=== PATIENT | female | born 2000 | race Caucasian/White ===

== ENCOUNTER 2022-11-02 12:27 | Emergency (ER) | payer OTHER ==
[~2022-11-02] VITALS: Ht 152.4 cm; Wt 2.7 kg
[~2022-11-02 12:27] MED LIST: IBUP-1969 PO; LIDO1ADH71 TD; METH-634 PO
[2022-11-02 12:34] VITALS: BP_SYST 146
--- NOTE | 2022-11-02 12:38 | NUR ---
PT BIBA AWAKE AND ALERT AOX4, NO SOB OR DISTRESS. PT HAD A SEIZURE AT HOME THAT LASTED 10 SEC. PT FAMILY STATED SHE HIT HER HEAD. PT STATES PAIN TO HER CALF BILATERLLY. PT HAS HX OF EPILEPSEY AND THIS WAS HER SECOND SEIZURE. FIRST SEIZURE WAS BACK IN 2018.
[2022-11-02] MEDS ORDERED: LORazepam 1 MG TABLET PO ONE (12:45)
--- NOTE | 2022-11-02 12:45 | NUR ---
Patient triaged and placed IN [facility]. VSS and patient appears in no acute distress at this time. Accompanied by 2 EMT, awaiting available bed, and MD notified of need for MSE.
--- NOTE | 2022-11-02 12:46 | NUR ---
DR. FRANK AT [facility] TO ASSESS PT.
--- NOTE | 2022-11-02 12:48 | NUR ---
Patient to ER bed 7 to gown for evaluation. Side rails up. Report given to HAROON LEVIN.
[2022-11-02 13:12] LABS: BASOPHILS # (AUTO) 0.1 K/uL (0.0-0.2); BASOPHILS % (AUTO) 1.2 % (0.0-2.0); EOSINOPHILS # (AUTO) 0.1 K/uL (0.0-0.4); HEMATOCRIT 34.7 % (36-48); HEMOGLOBIN 11.4 g/dL (12.0-16.0); LYMPHOCYTES % (AUTO) 32.4 % (20.5-51.5); MEAN CORPUSCULAR HEMOGLOBIN 29 pg (27-31); MEAN CORPUSCULAR HGB CONC 33 % (32-36); MEAN CORPUSCULAR VOLUME 88 fL (79.0-98.0); MONOCYTES # (AUTO) 0.3 K/uL (0.0-1.0); MONOCYTES % (AUTO) 4.6 % (1.7-9.3); NEUTROPHILS # (AUTO) 3.8 K/uL (1.8-7.7); NEUTROPHILS % (AUTO) 60.8 % (40.0-70.0); PLATELET COUNT (AUTO) 309 K/uL (130-430); RED BLOOD CELL COUNT(AUTO) 3.94 MIL/uL (4.2-6.2); RED CELL DISTRIBUTION WIDTH 14.9 % (9.0-15.0); WHITE BLOOD COUNT (AUTO) 6.3 K/uL (4.8-10.8)
[2022-11-02 13:17] LABS: CALCIUM 8.9 mg/dL (8.4-11.0); CREATININE 0.82 mg/dL (0.55-1.30)
[2022-11-02 13:22] LABS: ALBUMIN 3.9 g/dL (3.4-4.8); TOTAL BILIRUBIN 0.5 mg/dL (0.0-1.0)
[2022-11-02] MEDS ORDERED: LamoTRIgine 25 MG TABLET PO SCH (15:15)
--- NOTE | 2022-11-02 16:00 | NUR ---
Patient given written and verbal discharge instructions and verbalizes understanding. ER MD DR FRANK discussed with patient the results and treatment provided. Patient in stable condition. ID arm band removed. IV catheter removed intact and dressing applied, no active bleeding. Patient educated on pain management and to follow up with PMD. Pain Scale 0/10. Opportunity for questions provided and answered. Medication side effect fact sheet provided.
[2022-11-02 19:56] VITALS: BP_SYST 115
== END 2022-11-02 16:00 | disposition home or self-care (01) ==
LOC: SED 12:27
DX: R56.9 Unspecified convulsions (principal); R51.9 Headache, unspecified; Z79.899 Other long term (current) drug therapy
CPT/HCPCS: 36415; 80053; 83605; 84703; 85025; 99283